=== PATIENT | female | born 1940 | race Caucasian/White ===

== ENCOUNTER → 2016-08-23 | Outpatient (CLI) | payer MEDICARE, OTHER | END | disposition home or self-care (01) | LOC: CVU 13:30 | PROVIDERS: ATTEND Physician Assistant | DX: I70.203 Unspecified atherosclerosis of native arteries of extremities, bilateral legs (principal); E11.9 Type 2 diabetes mellitus without complications; E78.5 Hyperlipidemia, unspecified; I10 Essential (primary) hypertension; F41.9 Anxiety disorder, unspecified; I70.8 Atherosclerosis of other arteries; M47.896 Other spondylosis, lumbar region; Z79.01 Long term (current) use of anticoagulants; Z86.73 Personal history of transient ischemic attack (TIA), and cerebral infarction without residual deficits | CPT/HCPCS: 72110; 93922; 93925 ==

== ENCOUNTER → 2017-05-02 | Outpatient (CLI) | payer MEDICARE, OTHER | LOC: CFH 09:29 | PROVIDERS: ATTEND Nurse Practitioner Primary Care | DX: Z13.220 Encounter for screening for lipoid disorders (principal); Z12.11 Encounter for screening for malignant neoplasm of colon; Z12.39 Encounter for other screening for malignant neoplasm of breast; Z12.4 Encounter for screening for malignant neoplasm of cervix; E11.9 Type 2 diabetes mellitus without complications; E78.5 Hyperlipidemia, unspecified; I10 Essential (primary) hypertension; N28.9 Disorder of kidney and ureter, unspecified; G56.00 Carpal tunnel syndrome, unspecified upper limb; Z86.73 Personal history of transient ischemic attack (TIA), and cerebral infarction without residual deficits; M54.5 Low back pain; I73.9 Peripheral vascular disease, unspecified; R06.83 Snoring; R05 Cough | CPT/HCPCS: 71046 ==

== ENCOUNTER → 2017-08-28 | Outpatient (CLI) | payer MEDICARE, OTHER | END | disposition home or self-care (01) | LOC: MRI 11:14 | PROVIDERS: ATTEND Internal Medicine | DX: J98.11 Atelectasis (principal); F32.9 Major depressive disorder, single episode, unspecified; J30.9 Allergic rhinitis, unspecified; E11.9 Type 2 diabetes mellitus without complications; E78.5 Hyperlipidemia, unspecified; I10 Essential (primary) hypertension; N28.9 Disorder of kidney and ureter, unspecified; G56.00 Carpal tunnel syndrome, unspecified upper limb; I70.8 Atherosclerosis of other arteries; R13.10 Dysphagia, unspecified; M54.5 Low back pain; I73.9 Peripheral vascular disease, unspecified; R06.83 Snoring; R94.31 Abnormal electrocardiogram [ECG] [EKG]; F41.9 Anxiety disorder, unspecified; M80.00XD Age-related osteoporosis with current pathological fracture, unspecified site, subsequent encounter for fracture with routine healing; Z86.73 Personal history of transient ischemic attack (TIA), and cerebral infarction without residual deficits | CPT/HCPCS: 71046 ==

== ENCOUNTER 2017-10-10 23:41 | Inpatient (IN) | payer MEDICARE, OTHER ==
[~2017-10-10] VITALS: Ht 157.5 cm; Wt 95.0 kg
[2017-10-10] MEDS ORDERED: AMLO10TA2 PO (23:56)
[2017-10-10] MEDS ORDERED: ALEN70TA3 PO (23:56)
[2017-10-10] MEDS ORDERED: CLOP75TA52 PO (23:56)
[2017-10-10] MEDS ORDERED: ASPI-647 PO (23:56)
[2017-10-10] MEDS ORDERED: GABA300C10 PO (23:56)
[2017-10-10] MEDS ORDERED: ENAL20TA PO (23:56)
[2017-10-10] MEDS ORDERED: INSULIN GLARGINE (23:59)
[2017-10-10] MEDS ORDERED: PIOG15TA22 PO (23:59)
[2017-10-10] MEDS ORDERED: ROSU5TAB PO (23:59)
[2017-10-10] MEDS ORDERED: LINA5TAB PO (23:59)
[2017-10-10] MEDS ORDERED: FENO40TA4 PO (23:59)
[2017-10-11 00:10] LABS: BASOPHILS # (AUTO) 0.05 x10^3/uL (0-0.1); BASOPHILS % (AUTO) 1 % (0-1); EOSINOPHILS # (AUTO) 0.29 x10^3/uL (0-0.4); EOSINOPHILS % (AUTO) 5 % (1-7); LYMPHOCYTES # (AUTO) 2.51 x10^3/uL (1-3.4); LYMPHOCYTES % (AUTO) 39 % (22-44); MD NO; MEAN CORPUSCULAR HEMOGLOBIN 27.3 pg (27.0-34.8); MEAN CORPUSCULAR HGB CONC 32.7 g/dL (32.4-35.8); MEAN CORPUSCULAR VOLUME 83.6 fL (80-100); MEAN PLATELET VOLUME 8.8 fL (7.4-10.4); MONOCYTES # (AUTO) 0.55 x10^3/uL (0.2-0.8); MONOCYTES % (AUTO) 9 % (2-9); NEUTROPHILS # (AUTO) 3.01 x10^3/uL (1.8-6.8); NEUTROPHILS % (AUTO) 47 % (42-75); PLATELET COUNT 216 x10^3/uL (130-400); RED CELL DISTRIBUTION WIDTH 15.9 % (9.6-15.2)
[2017-10-11 00:22] LABS: ALBUMIN 3.9 g/dL (3.4-5.0); ANION GAP 7 mmol/L (5-15); CALCIUM 9.9 mg/dL (8.5-10.1); CHLORIDE 113 mmol/L (98-107)
[2017-10-11] MEDS ORDERED: MORPHINE SULFATE 4 MG/ML, 1ML IVPush PRN (01:00)
[2017-10-11] MEDS ORDERED: ONDANSETRON 2MG/ML, 2ML IVPush PRN ×2 (01:00→02:00)
[2017-10-11 01:30] VITALS: BP 150/77
[2017-10-11] MEDS ORDERED: PLEASE ENTER ALLERGIES MC SCH (01:30)
[2017-10-11] MEDS ORDERED: POLYETHYLENE GLYCOL 17 GM PACKET PO PRN (02:00)
[2017-10-11] MEDS ORDERED: ENALAPRILAT 1.25 MG/ML, 2ML IVPush PRN (02:00)
[2017-10-11] MEDS ORDERED: PROMETHAZINE 25 MG/ML, 1ML IM PRN (02:00)
[2017-10-11] MEDS ORDERED: BISACODYL 10 MG SUPP PR PRN (02:00)
[2017-10-11] MEDS ORDERED: NITROGLYCERIN 0.4 MG BOTTLE (25 TABS) SL PRN (02:00)
[2017-10-11] MEDS ORDERED: LABETALOL 5MG/ML, 20ML IVPush PRN (02:00)
[2017-10-11] MEDS ORDERED: DOCUSATE 100 MG CAPSULE PO PRN (02:00)
[2017-10-11] MEDS ORDERED: morphine SULFATE 10 MG/ML, 1ML IVPush PRN (02:00)
[2017-10-11] MEDS ORDERED: ONDANSETRON ODT 4 MG PO PRN (02:00)
[2017-10-11 02:35] LABS: FREE T4 (FREE THYROXINE) 1.07 ng/dL (0.76-1.46); THYROID STIMULATING HORMONE 1.84 mIU/L (0.358-3.740)
[2017-10-11] MEDS: SODIUM CHLORIDE 0.9% 1,000 ML IV SCH ×2 (02:48→22:25)
[2017-10-11] MEDS: HEPARIN 25,000 UNITS/500ML PMX 500 ML IV PRN (02:56)
[2017-10-11] MEDS ORDERED: HEPARIN 5,000 UNITS/ML, 1ML IV ONE (03:00)
[2017-10-11 03:32] LABS: MICROSCOPIC AUTO
[2017-10-11 03:40] LABS: CULTURE INDICATED? YES
[2017-10-11 05:02] LABS: BASOPHILS # (AUTO) 0.05 x10^3/uL (0-0.1); BASOPHILS % (AUTO) 1 % (0-1); EOSINOPHILS # (AUTO) 0.24 x10^3/uL (0-0.4); EOSINOPHILS % (AUTO) 4 % (1-7); LYMPHOCYTES # (AUTO) 2.07 x10^3/uL (1-3.4); LYMPHOCYTES % (AUTO) 33 % (22-44); MD NO; MEAN CORPUSCULAR HEMOGLOBIN 26.5 pg (27.0-34.8); MEAN CORPUSCULAR HGB CONC 31.7 g/dL (32.4-35.8); MEAN CORPUSCULAR VOLUME 83.6 fL (80-100); MEAN PLATELET VOLUME 9.3 fL (7.4-10.4); MONOCYTES # (AUTO) 0.53 x10^3/uL (0.2-0.8); MONOCYTES % (AUTO) 8 % (2-9); NEUTROPHILS # (AUTO) 3.47 x10^3/uL (1.8-6.8); NEUTROPHILS % (AUTO) 55 % (42-75); PLATELET COUNT 196 x10^3/uL (130-400); RED BLOOD COUNT 5.09 x10^6/uL (3.82-5.3); RED CELL DISTRIBUTION WIDTH 16.6 % (9.6-15.2)
[2017-10-11 05:13] LABS: CHLORIDE 115 mmol/L (98-107)
[2017-10-11 05:26] LABS: ALANINE AMINOTRANSFERASE 24 U/L (12-78); ALBUMIN 3.3 g/dL (3.4-5.0); ALKALINE PHOSPHATASE 42 U/L (45-117); ANION GAP 8 mmol/L (5-15); BILIRUBIN,TOTAL 0.5 mg/dL (0.2-1.0); CALCIUM 8.9 mg/dL (8.5-10.1); CHOL/HDL RATIO 1.8; CHOLESTEROL, TOTAL 120 mg/dL (140-239); CREATININE 1.59 mg/dL (0.55-1.02); HDL CHOL % 57 % (28-40); HDL CHOLESTEROL (DIRECT) 68 mg/dL (40-60); LDL CHOLESTEROL,CALCULATED 44 mg/dL (54-169); LDL/HDL RATIO 0.6 (0.5-3.0); TOTAL PROTEIN 6.9 g/dL (6.4-8.2); TRIGLYCERIDES 41 mg/dL (50-200); TROPONIN I 0.637 ng/mL (0.000-0.045); VLDL CHOLESTEROL 8 mg/dL (0-25)
[2017-10-11] MEDS: ASPIRIN 325 MG TABLET EC PO SCH (06:00)
[2017-10-11] MEDS: METOPROLOL TARTRATE 25 MG TABLET PO SCH ×2 (06:27→18:48)
[2017-10-11 06:49] VITALS: BP 152/84
[2017-10-11] MEDS: INSULIN LISPRO 100 UNITS/ML, PEN SQ-INSULIN SCH ×4 (07:00→22:25)
[2017-10-11] MEDS: GABAPENTIN 300 MG CAPSULE PO SCH ×3 (08:27→22:21)
[2017-10-11] MEDS: AMLODIPINE 5 MG TABLET PO SCH (08:27)
[2017-10-11] MEDS ORDERED: CLOPIDOGREL 75 MG TABLET PO SCH (09:00)
[2017-10-11 13:09] VITALS: BP 156/73
[2017-10-11] MEDS ORDERED: MIDAZOLAM 1 MG/ML, 2ML ONE (13:34)
[2017-10-11] MEDS ORDERED: FENTANYL PF 100 MCG/2ML ONE (13:34)
[2017-10-11] MEDS ORDERED: HEPARIN 1,000 UNITS/ML, 10ML ONE (13:34)
[2017-10-11] MEDS ORDERED: LIDOCAINE-MPF 2%, 2ML ONE (13:34)
[2017-10-11] MEDS ORDERED: VERAPAMIL 2.5 MG/ML, 2ML ONE (13:34)
[2017-10-11 20:11] VITALS: BP 156/73
[2017-10-11] MEDS ORDERED: MELATONIN 3 MG TABLET PO PRN (22:00)
[2017-10-11] MEDS: ATORVASTATIN 10 MG TABLET PO SCH (22:20)
[2017-10-11] MEDS: HEPARIN 5,000 UNITS/ML, 1ML IV PRN (22:22)
[2017-10-12 04:39] VITALS: BP 138/60
[2017-10-12 04:59] LABS: ANION GAP 8 mmol/L (5-15); CHLORIDE 113 mmol/L (98-107); CREATININE 1.42 mg/dL (0.55-1.02)
[2017-10-12] MEDS: HEPARIN 5,000 UNITS/ML, 1ML IV PRN (05:23)
[2017-10-12] MEDS: METOPROLOL TARTRATE 25 MG TABLET PO SCH ×2 (05:24→17:35)
[2017-10-12] MEDS: ASPIRIN 325 MG TABLET EC PO SCH (05:24)
[2017-10-12] MEDS: INSULIN LISPRO 100 UNITS/ML, PEN SQ-INSULIN SCH ×4 (07:00→21:00)
[2017-10-12 07:20] VITALS: BP 109/67
[2017-10-12] MEDS: GABAPENTIN 300 MG CAPSULE PO SCH ×3 (08:05→21:49)
[2017-10-12] MEDS: AMLODIPINE 5 MG TABLET PO SCH (08:05)
[2017-10-12] MEDS: LOSARTAN 50MG TABLET PO SCH (08:05)
[2017-10-12] MEDS: HEPARIN 25,000 UNITS/500ML PMX 500 ML IV PRN (10:07)
[2017-10-12 14:37] VITALS: BP 121/69
[2017-10-12 17:33] VITALS: BP 157/68
[2017-10-12 20:11] VITALS: BP 140/87
[2017-10-12] MEDS: ATORVASTATIN 10 MG TABLET PO SCH (21:49)
[2017-10-13 01:34] VITALS: BP 123/71
[2017-10-13 05:36] LABS: CHLORIDE 110 mmol/L (98-107)
[2017-10-13] MEDS: ASPIRIN 325 MG TABLET EC PO SCH (05:38)
[2017-10-13] MEDS: METOPROLOL TARTRATE 25 MG TABLET PO SCH ×2 (05:39→16:57)
[2017-10-13 05:45] LABS: ANION GAP 9 mmol/L (5-15); CREATININE 1.71 mg/dL (0.55-1.02)
[2017-10-13] MEDS: HEPARIN 25,000 UNITS/500ML PMX 500 ML IV PRN (06:14)
[2017-10-13] MEDS: INSULIN LISPRO 100 UNITS/ML, PEN SQ-INSULIN SCH ×4 (07:00→20:01)
[2017-10-13 07:33] VITALS: BP 130/68
[2017-10-13] MEDS: AMLODIPINE 5 MG TABLET PO SCH (08:50)
[2017-10-13] MEDS: GABAPENTIN 300 MG CAPSULE PO SCH ×3 (08:50→20:35)
[2017-10-13] MEDS: LOSARTAN 50MG TABLET PO SCH (08:51)
[2017-10-13] MEDS: SODIUM CHLORIDE 0.9% 1,000 ML IV SCH ×2 (08:51→20:35)
[2017-10-13 15:43] VITALS: BP 153/68
[2017-10-13 16:54] VITALS: BP 137/76
[2017-10-13 19:20] VITALS: BP 133/71
[2017-10-13] MEDS: ATORVASTATIN 10 MG TABLET PO SCH (20:35)
[2017-10-14 02:21] VITALS: BP 142/76
[2017-10-14 04:43] LABS: BASOPHILS # (AUTO) 0.05 x10^3/uL (0-0.1); BASOPHILS % (AUTO) 1 % (0-1); EOSINOPHILS # (AUTO) 0.21 x10^3/uL (0-0.4); EOSINOPHILS % (AUTO) 4 % (1-7); LYMPHOCYTES # (AUTO) 1.62 x10^3/uL (1-3.4); LYMPHOCYTES % (AUTO) 31 % (22-44); MD NO; MEAN CORPUSCULAR HEMOGLOBIN 27.4 pg (27.0-34.8); MEAN CORPUSCULAR HGB CONC 32.7 g/dL (32.4-35.8); MEAN CORPUSCULAR VOLUME 83.8 fL (80-100); MEAN PLATELET VOLUME 9.2 fL (7.4-10.4); MONOCYTES # (AUTO) 0.46 x10^3/uL (0.2-0.8); MONOCYTES % (AUTO) 9 % (2-9); NEUTROPHILS # (AUTO) 2.91 x10^3/uL (1.8-6.8); NEUTROPHILS % (AUTO) 55 % (42-75); PLATELET COUNT 186 x10^3/uL (130-400); RED BLOOD COUNT 4.91 x10^6/uL (3.82-5.3); RED CELL DISTRIBUTION WIDTH 15.8 % (9.6-15.2)
[2017-10-14 04:54] LABS: ANION GAP 8 mmol/L (5-15); CALCIUM 8.9 mg/dL (8.5-10.1); CHLORIDE 114 mmol/L (98-107)
[2017-10-14 04:55] LABS: CREATININE 1.42 mg/dL (0.55-1.02)
[2017-10-14] MEDS: SODIUM CHLORIDE 0.9% 1,000 ML IV SCH (06:47)
[2017-10-14] MEDS: METOPROLOL TARTRATE 25 MG TABLET PO SCH ×2 (06:47→17:06)
[2017-10-14] MEDS: ASPIRIN 325 MG TABLET EC PO SCH (06:48)
[2017-10-14] MEDS: INSULIN LISPRO 100 UNITS/ML, PEN SQ-INSULIN SCH ×4 (07:00→20:45)
[2017-10-14 07:05] VITALS: BP 131/73
[2017-10-14] MEDS: GABAPENTIN 300 MG CAPSULE PO SCH ×3 (10:16→20:41)
[2017-10-14] MEDS: AMLODIPINE 5 MG TABLET PO SCH (10:16)
[2017-10-14] MEDS: LOSARTAN 50MG TABLET PO SCH (10:17)
[2017-10-14] MEDS: ACETAMINOPHEN 325 MG TABLET PO PRN (10:56)
[2017-10-14 13:32] VITALS: BP 145/74
[2017-10-14 17:00] VITALS: BP 165/78
[2017-10-14 20:40] VITALS: BP 149/89
[2017-10-14] MEDS: ATORVASTATIN 10 MG TABLET PO SCH (20:41)
[2017-10-15 02:51] VITALS: BP 128/78
[2017-10-15] MEDS: ASPIRIN 325 MG TABLET EC PO SCH (05:51)
[2017-10-15] MEDS: INSULIN LISPRO 100 UNITS/ML, PEN SQ-INSULIN SCH ×4 (07:00→20:13)
[2017-10-15 07:20] VITALS: BP 138/71
[2017-10-15] MEDS: GABAPENTIN 300 MG CAPSULE PO SCH ×3 (07:43→20:13)
[2017-10-15] MEDS: AMLODIPINE 5 MG TABLET PO SCH (07:43)
[2017-10-15] MEDS: METOPROLOL TARTRATE 25 MG TABLET PO SCH ×2 (07:43→17:47)
[2017-10-15] MEDS: LOSARTAN 50MG TABLET PO SCH (07:47)
[2017-10-15 10:19] LABS: BASOPHILS # (AUTO) 0.03 x10^3/uL (0-0.1); BASOPHILS % (AUTO) 1 % (0-1); EOSINOPHILS # (AUTO) 0.22 x10^3/uL (0-0.4); EOSINOPHILS % (AUTO) 4 % (1-7); LYMPHOCYTES # (AUTO) 1.57 x10^3/uL (1-3.4); LYMPHOCYTES % (AUTO) 30 % (22-44); MD NO; MEAN CORPUSCULAR HEMOGLOBIN 27.2 pg (27.0-34.8); MEAN CORPUSCULAR HGB CONC 32.7 g/dL (32.4-35.8); MEAN CORPUSCULAR VOLUME 83.2 fL (80-100); MONOCYTES # (AUTO) 0.39 x10^3/uL (0.2-0.8); MONOCYTES % (AUTO) 8 % (2-9); NEUTROPHILS # (AUTO) 2.96 x10^3/uL (1.8-6.8); NEUTROPHILS % (AUTO) 57 % (42-75); PLATELET COUNT 210 x10^3/uL (130-400); RED BLOOD COUNT 5.39 x10^6/uL (3.82-5.3)
[2017-10-15 10:21] LABS: ALBUMIN 3.5 g/dL (3.4-5.0); ANION GAP 7 mmol/L (5-15); CALCIUM 10.1 mg/dL (8.5-10.1); CHLORIDE 108 mmol/L (98-107); CREATININE 1.71 mg/dL (0.55-1.02)
[2017-10-15] MEDS ORDERED: MAGNESIUM OXIDE 400 MG TABLET PO SCH (10:30)
[2017-10-15] MEDS ORDERED: FENTANYL PF 100 MCG/2ML ONE ×4 (14:22→16:33)
[2017-10-15] MEDS ORDERED: BIVALIRUDIN 250 MG ONE ×2 (14:22→15:27)
[2017-10-15] MEDS ORDERED: MIDAZOLAM 1 MG/ML, 5ML ONE (14:22)
[2017-10-15] MEDS ORDERED: HEPARIN 1,000 UNITS/ML, 10ML ONE (14:22)
[2017-10-15] MEDS ORDERED: VERAPAMIL 2.5 MG/ML, 2ML ONE (14:22)
[2017-10-15] MEDS ORDERED: TICAGRELOR 90 MG TABLET ONE (14:33)
[2017-10-15] MEDS ORDERED: NITROGLYCERIN 5 MG/ML, 10ML ONE (14:40)
[2017-10-15 17:00] VITALS: BP 157/83
[2017-10-15] MEDS ORDERED: BIVALIRUDIN 250 MG in DEXTROSE 5% 50 ML IV SCH (17:09)
[2017-10-15] MEDS: OXYcodone IR 5MG TABLET PO PRN (17:47)
[2017-10-15] MEDS: SODIUM CHLORIDE 0.9% 1,000 ML IV SCH (18:16)
[2017-10-15 20:00] VITALS: BP 139/75
[2017-10-15] MEDS: ATORVASTATIN 10 MG TABLET PO SCH (20:13)
[2017-10-15] MEDS: TICAGRELOR 90 MG TABLET PO SCH (20:13)
[2017-10-16] MEDS: SODIUM CHLORIDE 0.9% 1,000 ML IV SCH (00:04)
[2017-10-16 02:14] VITALS: BP 130/72
[2017-10-16] MEDS: ASPIRIN 81 MG TABLET EC PO SCH (05:06)
[2017-10-16] MEDS: METOPROLOL TARTRATE 25 MG TABLET PO SCH ×2 (05:06→18:27)
[2017-10-16] MEDS: OXYcodone IR 5MG TABLET PO PRN ×2 (05:11→21:30)
[2017-10-16 05:24] LABS: ALBUMIN 3.6 g/dL (3.4-5.0); ANION GAP 9 mmol/L (5-15); CALCIUM 9.9 mg/dL (8.5-10.1); CHLORIDE 108 mmol/L (98-107); CREATININE 1.37 mg/dL (0.55-1.02)
[2017-10-16 07:47] VITALS: BP 112/71
[2017-10-16] MEDS: TICAGRELOR 90 MG TABLET PO SCH ×2 (09:31→21:31)
[2017-10-16] MEDS: INSULIN LISPRO 100 UNITS/ML, PEN SQ-INSULIN SCH ×4 (09:31→21:34)
[2017-10-16] MEDS: AMLODIPINE 5 MG TABLET PO SCH (09:32)
[2017-10-16] MEDS: LOSARTAN 50MG TABLET PO SCH (09:32)
[2017-10-16] MEDS: GABAPENTIN 300 MG CAPSULE PO SCH ×3 (09:32→21:30)
[2017-10-16 13:15] VITALS: BP 125/68
[2017-10-16] MEDS: ATORVASTATIN 10 MG TABLET PO SCH (21:30)
[2017-10-16 21:41] VITALS: BP 119/70
[2017-10-17 01:34] VITALS: BP 101/62
[2017-10-17] MEDS: ASPIRIN 81 MG TABLET EC PO SCH (05:46)
[2017-10-17] MEDS: METOPROLOL TARTRATE 25 MG TABLET PO SCH (05:46)
[2017-10-17 05:49] VITALS: BP 112/78
[2017-10-17 07:00] VITALS: BP 121/70
[2017-10-17] MEDS: INSULIN LISPRO 100 UNITS/ML, PEN SQ-INSULIN SCH ×2 (07:00→11:31)
[2017-10-17] MEDS: AMLODIPINE 5 MG TABLET PO SCH (08:02)
[2017-10-17] MEDS: TICAGRELOR 90 MG TABLET PO SCH (08:02)
[2017-10-17] MEDS: GABAPENTIN 300 MG CAPSULE PO SCH (08:02)
[2017-10-17] MEDS: LOSARTAN 50MG TABLET PO SCH (08:02)
[2017-10-17] MEDS: ACETAMINOPHEN 325 MG TABLET PO PRN (08:13)
[2017-10-17 13:01] VITALS: BP 120/75
[2017-10-17] MEDS ORDERED: ONDA4TAB13 PO (14:02)
[2017-10-17] MEDS ORDERED: LOSA50TA2 PO (14:02)
[2017-10-17] MEDS ORDERED: METO25TA35 PO (14:02)
[2017-10-17] MEDS ORDERED: TICA90TA PO (14:02)
[2017-10-17] MEDS ORDERED: DOCU-131 PO (14:02)
[2017-10-17] MEDS ORDERED: NITR0.4T SL (14:02)
[2017-10-17] MEDS ORDERED: GABA300C10 PO (14:02)
[2017-10-17] MEDS ORDERED: ASPI-621 PO (14:02)
== END 2017-10-17 15:10 | disposition home health service (06) | DRG 246 ==
LOC: ED 23:59 → EDIP 10-11 01:14 → 5SO 10-11 01:25 → DCLOUNGE 10-17 14:31
PROVIDERS: ADMIT Internal Medicine; ATTEND Internal Medicine
PROC: 027137Z Dilation of Coronary Artery, Two Arteries with Four or More Drug-eluting Intraluminal Devices, Percutaneous Approach (ICD-10-PCS; principal; 2017-10-11)
PROC: 4A023N7 Measurement of Cardiac Sampling and Pressure, Left Heart, Percutaneous Approach (ICD-10-PCS; 2017-10-11)
PROC: B2111ZZ Fluoroscopy of Multiple Coronary Arteries using Low Osmolar Contrast (ICD-10-PCS; 2017-10-11)
PROC: B2151ZZ Fluoroscopy of Left Heart using Low Osmolar Contrast (ICD-10-PCS; 2017-10-11)
DX: I21.4 Non-ST elevation (NSTEMI) myocardial infarction (principal); N17.0 Acute kidney failure with tubular necrosis; I10 Essential (primary) hypertension; E11.51 Type 2 diabetes mellitus with diabetic peripheral angiopathy without gangrene; E11.40 Type 2 diabetes mellitus with diabetic neuropathy, unspecified; I25.119 Atherosclerotic heart disease of native coronary artery with unspecified angina pectoris; E78.5 Hyperlipidemia, unspecified; I34.0 Nonrheumatic mitral (valve) insufficiency; M85.80 Other specified disorders of bone density and structure, unspecified site; Z79.4 Long term (current) use of insulin; Z80.8 Family history of malignant neoplasm of other organs or systems; Z86.73 Personal history of transient ischemic attack (TIA), and cerebral infarction without residual deficits; Z87.891 Personal history of nicotine dependence; Z90.49 Acquired absence of other specified parts of digestive tract
CPT/HCPCS: 36415; 71045; 76770; 80048; 80053; 80061; 80069; 81001; 82040; 82962; 83036; 83735; 83880; 84439; 84443; 84484; 85014; 85018; 85025; 85520; 87086; 93005; 93454; 93458; 99156; 99157; 99285; C1760; C1769; C1894; C9600; J0583; J1644; J2250; J3010; J3490; C1725; C1874; C1887; J1815; J2270; J7030; Q9967

== ENCOUNTER → 2018-01-03 | Outpatient (CLI) | payer MEDICARE, OTHER ==
[~2018-01-03] MED LIST: ALEN70TA3 PO; AMLO10TA6 PO; ASPI-621 PO; ASPI-647 PO; CLOP75TA52 PO; DOCU-131 PO; ENAL20TA PO; FENO40TA4 PO; GABA300C10 PO; INSULIN GLARGINE; LINA5TAB PO; LOSA50TA2 PO; METO25TA35 PO; NITR0.4T SL; ONDA4TAB13 PO; PIOG15TA22 PO; ROSU5TAB PO; TICA90TA PO
== END | disposition home or self-care (01) ==
LOC: CFH 11:38
PROVIDERS: ATTEND Physician Assistant
DX: Z02.9 Encounter for administrative examinations, unspecified (principal)

== ENCOUNTER → 2018-01-06 | Outpatient (CLI) | payer MEDICARE, OTHER | END | disposition home or self-care (01) | LOC: CFH 12:07 | PROVIDERS: ATTEND Physician Assistant | DX: M25.551 Pain in right hip (principal); M25.552 Pain in left hip; R20.0 Anesthesia of skin; I73.9 Peripheral vascular disease, unspecified; E11.9 Type 2 diabetes mellitus without complications; I10 Essential (primary) hypertension; E78.5 Hyperlipidemia, unspecified; F32.9 Major depressive disorder, single episode, unspecified; F41.9 Anxiety disorder, unspecified | CPT/HCPCS: 73523 ==

== ENCOUNTER → 2018-01-15 | Outpatient (CLI) | payer MEDICARE, OTHER | END | disposition home or self-care (01) | LOC: CFH 06:52 | PROVIDERS: ATTEND Physician Assistant | DX: M48.062 Spinal stenosis, lumbar region with neurogenic claudication (principal); M12.88 Other specific arthropathies, not elsewhere classified, other specified site | CPT/HCPCS: 72148 ==

== ENCOUNTER → 2018-01-27 | Outpatient (CLI) | payer MEDICARE, OTHER | END | disposition home or self-care (01) | LOC: CFH 09:59 | PROVIDERS: ATTEND Internal Medicine Cardiovascular Disease | DX: I34.0 Nonrheumatic mitral (valve) insufficiency (principal); I34.8 Other nonrheumatic mitral valve disorders; I10 Essential (primary) hypertension; E78.5 Hyperlipidemia, unspecified; I25.2 Old myocardial infarction | CPT/HCPCS: 93306 ==

== ENCOUNTER 2018-04-29 19:31 | Inpatient (IN) | payer MEDICARE, OTHER ==
[~2018-04-29] VITALS: Ht 157.5 cm; Wt 95.1 kg
[~2018-04-29 19:31] MED LIST changes: -AMLO10TA6 PO; +AMLO10TA8 PO; -ASPI-621 PO; +ASPI81TA45 PO
--- NOTE | 2018-04-29 20:26 | NUR ---
PT. TO ROOM FROM LOBBY; PT. AMBULATORY TO BR WITH STEADY GAIT AT THIS TIME.
--- NOTE | 2018-04-29 20:38 | NUR ---
PT. TO ED WITH C/O COUGH SINCE Apr. REPORTS WAS DX WITH BRONCHITIS AND PNA; HAS BEEN TAKING UNKNOWN ABX AND ONLY HAS 2 DAYS LEFT OF THIS. PT. REPORTS COUGH MEDS NOT HELPING. LEFT SIDE "LUNG" PAIN. DENIES CP. C/O INCREASED SWELLING TO BLE. PT. REPORTS HX OF DM AND NV WITH STENTS (SEPTEMBER 2017). PT. ABLE TO SPEAK IN FULL SENTENCES. SKIN PWD. A&O X 4. PLACED ON CONTINUOUS PULSE OX, B/P, AND HEART MONITORS. CALL LIGHT IN REACH. LAB AT BS. PT. DENIES NEEDS. ALL SAFETY MEASURES OBSERVED. AWAITING PROVIDER EVAL.
[2018-04-29 20:51] LABS: BASOPHILS # (AUTO) 0.03 x10^3/uL (0-0.1); BASOPHILS % (AUTO) 0 % (0-1); EOSINOPHILS # (AUTO) 0.28 x10^3/uL (0-0.4); EOSINOPHILS % (AUTO) 4 % (1-7); LYMPHOCYTES # (AUTO) 2.44 x10^3/uL (1-3.4); LYMPHOCYTES % (AUTO) 31 % (22-44); MD NO; MEAN CORPUSCULAR HEMOGLOBIN 26.7 pg (27.0-34.8); MEAN CORPUSCULAR HGB CONC 31.5 g/dL (32.4-35.8); MEAN CORPUSCULAR VOLUME 84.5 fL (80-100); MEAN PLATELET VOLUME 9.2 fL (7.4-10.4); MONOCYTES # (AUTO) 0.53 x10^3/uL (0.2-0.8); MONOCYTES % (AUTO) 7 % (2-9); NEUTROPHILS # (AUTO) 4.65 x10^3/uL (1.8-6.8); NEUTROPHILS % (AUTO) 59 % (42-75); PLATELET COUNT 220 x10^3/uL (130-400); RED BLOOD COUNT 4.94 x10^6/uL (3.82-5.3); RED CELL DISTRIBUTION WIDTH 15.6 % (9.6-15.2)
[2018-04-29 21:00] LABS: ALANINE AMINOTRANSFERASE 53 U/L (12-78); ALBUMIN 3.4 g/dL (3.4-5.0); ANION GAP 4 mmol/L (5-15); CALCIUM 9.3 mg/dL (8.5-10.1); CHLORIDE 112 mmol/L (98-107); CREATININE 1.62 mg/dL (0.55-1.02)
[2018-04-29 21:04] LABS: ALKALINE PHOSPHATASE 52 U/L (45-117); BILIRUBIN,TOTAL 0.5 mg/dL (0.2-1.0); TOTAL PROTEIN 7.2 g/dL (6.4-8.2); TROPONIN I 0.018 ng/mL (0.000-0.045)
--- NOTE | 2018-04-29 21:12 | NUR ---
DR. REARDON AT BS TO EVAL PT. AND DISCUSS POC.
--- NOTE | 2018-04-29 21:20 | NUR ---
PER DR. REARDON OK FOR PT. TO HAVE WATER PER REQUEST; PROVIDED WITH WATER.
[2018-04-29] MEDS ORDERED: CEFTRIAXONE PMX 1GM/50ML 50 ML IV ONE (21:30)
[2018-04-29] MEDS ORDERED: AZITHROMYCIN 500 MG in SODIUM CHLORIDE 0.9% 250 ML IV ONE (21:30)
[2018-04-29] MEDS ORDERED: SODIUM CHLORIDE 0.9% 1,000 ML IV ONE (21:30)
--- NOTE | 2018-04-29 21:42 | NUR ---
IV ESTABLISHED; 2 SETS OF BLOOD CULTURES COMPLETED.
[2018-04-29] MEDS ORDERED: LOSA50TA14 PO (21:45)
[2018-04-29] MEDS ORDERED: INSU100V8 SQ (21:47)
[2018-04-29] MEDS ORDERED: CLOP75TA52 PO (21:47)
[2018-04-29] MEDS ORDERED: CEFTRIAXONE PMX 1GM/50ML 50 ML ONE (21:54)
[2018-04-29] MEDS: SODIUM CHLORIDE 0.9% 1,000 ML IV SCH (22:08)
--- NOTE | 2018-04-29 22:11 | NUR ---
REPORT TO SANDHYA SEPULVEDA. FLOOR READY FOR PT. TRANSPORT.
[2018-04-29] MEDS ORDERED: GUAIFENESIN/DM 200-20MG, 10ML UDC PO PRN (22:30)
[2018-04-29] MEDS ORDERED: POLYETHYLENE GLYCOL 17 GM PACKET PO PRN (22:30)
[2018-04-29] MEDS ORDERED: ONDANSETRON 2MG/ML, 2ML IVPush PRN (22:30)
[2018-04-29] MEDS ORDERED: INSULIN GLARGINE HUM REC ANLOG 22 UNIT SQ SCH (22:30)
[2018-04-29] MEDS ORDERED: hydrALAzine 20 MG/ML, 1ML IVPush PRN (22:30)
[2018-04-29 22:32] LABS: MICROSCOPIC AUTO
[2018-04-29 22:47] VITALS: BP 158/66
[2018-04-29] MEDS: ACETAMINOPHEN 325 MG TABLET PO PRN (23:29)
[2018-04-29] MEDS: GUAIFENESIN ER 600 MG TABLET PO SCH (23:29)
[2018-04-29] MEDS: BENZONATATE 100 MG CAPSULE PO SCH (23:29)
[2018-04-29] MEDS: GABAPENTIN 300 MG CAPSULE PO SCH (23:29)
[2018-04-29] MEDS: ENOXAPARIN 30 MG/0.3 ML SQ SCH (23:30)
[2018-04-30 02:37] VITALS: BP 108/65
[2018-04-30 06:10] LABS: BASOPHILS # (AUTO) 0.02 x10^3/uL (0-0.1); BASOPHILS % (AUTO) 0 % (0-1); EOSINOPHILS # (AUTO) 0.23 x10^3/uL (0-0.4); EOSINOPHILS % (AUTO) 4 % (1-7); LYMPHOCYTES # (AUTO) 1.52 x10^3/uL (1-3.4); LYMPHOCYTES % (AUTO) 27 % (22-44); MD NO; MEAN CORPUSCULAR VOLUME 84.8 fL (80-100); MEAN PLATELET VOLUME 9.6 fL (7.4-10.4); MONOCYTES # (AUTO) 0.45 x10^3/uL (0.2-0.8); MONOCYTES % (AUTO) 8 % (2-9); NEUTROPHILS # (AUTO) 3.43 x10^3/uL (1.8-6.8); NEUTROPHILS % (AUTO) 61 % (42-75); PLATELET COUNT 171 x10^3/uL (130-400); RED CELL DISTRIBUTION WIDTH 15.5 % (9.6-15.2)
[2018-04-30] MEDS: ASPIRIN 81 MG TABLET EC PO SCH (06:11)
[2018-04-30] MEDS: SODIUM CHLORIDE 0.9% 1,000 ML IV SCH (06:12)
[2018-04-30 06:18] LABS: ANION GAP 2 mmol/L (5-15); CHLORIDE 116 mmol/L (98-107)
[2018-04-30 06:20] LABS: CALCIUM 8.5 mg/dL (8.5-10.1); CREATININE 1.49 mg/dL (0.55-1.02)
[2018-04-30] MEDS: INSULIN LISPRO 100 UNITS/ML, PEN SQ-INSULIN SCH ×4 (07:00→21:00)
[2018-04-30 07:50] VITALS: BP 130/70
[2018-04-30] MEDS: PIOGLITAZONE 15 MG TABLET PO SCH (08:31)
[2018-04-30] MEDS: AMLODIPINE 10 MG TAB PO SCH (08:31)
[2018-04-30] MEDS: CLOPIDOGREL 75 MG TABLET PO SCH (08:32)
[2018-04-30] MEDS: LOSARTAN 50MG TABLET PO SCH (08:32)
[2018-04-30] MEDS: GABAPENTIN 300 MG CAPSULE PO SCH ×3 (08:32→15:44)
[2018-04-30] MEDS: BENZONATATE 100 MG CAPSULE PO SCH ×3 (08:32→20:55)
[2018-04-30] MEDS: GUAIFENESIN ER 600 MG TABLET PO SCH ×2 (08:32→20:55)
[2018-04-30] MEDS: FENOFIBRATE 54 MG TABLET PO SCH (08:33)
[2018-04-30] MEDS: ACETAMINOPHEN 325 MG TABLET PO PRN ×2 (08:33→18:02)
[2018-04-30] MEDS ORDERED: LINAGLIPTIN 5 MG TAB PO SCH (09:00)
[2018-04-30] MEDS ORDERED: PIOGLITAZONE HCL 15 MG PO SCH (09:00)
[2018-04-30] MEDS: AZITHROMYCIN 500 MG in SODIUM CHLORIDE 0.9% 250 ML IV SCH (10:35)
[2018-04-30 14:35] VITALS: BP 110/67
[2018-04-30] MEDS: CEFTRIAXONE PMX 1GM/50ML 50 ML IV SCH ×2 (15:30→22:00)
[2018-04-30 20:03] VITALS: BP 135/74
[2018-04-30] MEDS: ENOXAPARIN 30 MG/0.3 ML SQ SCH (22:00)
[2018-05-01] MEDS: ACETAMINOPHEN 325 MG TABLET PO PRN ×3 (00:49→17:02)
[2018-05-01 00:56] VITALS: BP 140/64
[2018-05-01] MEDS ORDERED: ALBUTEROL SULFATE 2.5 MG/3 ML ONE (02:46)
[2018-05-01] MEDS ORDERED: SODIUM CHLORIDE INHALATION 7%, 4 ML NPPB ONE (03:00)
[2018-05-01] MEDS: ASPIRIN 81 MG TABLET EC PO SCH (06:21)
[2018-05-01 06:31] LABS: BASOPHILS # (AUTO) 0.02 x10^3/uL (0-0.1); BASOPHILS % (AUTO) 0 % (0-1); EOSINOPHILS # (AUTO) 0.27 x10^3/uL (0-0.4); EOSINOPHILS % (AUTO) 6 % (1-7); LYMPHOCYTES # (AUTO) 1.42 x10^3/uL (1-3.4); LYMPHOCYTES % (AUTO) 29 % (22-44); MD NO; MEAN CORPUSCULAR HEMOGLOBIN 27.1 pg (27.0-34.8); MEAN CORPUSCULAR HGB CONC 31.9 g/dL (32.4-35.8); MEAN CORPUSCULAR VOLUME 85.2 fL (80-100); MEAN PLATELET VOLUME 9.5 fL (7.4-10.4); MONOCYTES # (AUTO) 0.41 x10^3/uL (0.2-0.8); MONOCYTES % (AUTO) 8 % (2-9); NEUTROPHILS # (AUTO) 2.75 x10^3/uL (1.8-6.8); NEUTROPHILS % (AUTO) 57 % (42-75); PLATELET COUNT 174 x10^3/uL (130-400); RED BLOOD COUNT 4.49 x10^6/uL (3.82-5.3); RED CELL DISTRIBUTION WIDTH 15.4 % (9.6-15.2)
[2018-05-01 06:40] LABS: ANION GAP 5 mmol/L (5-15); CALCIUM 9.3 mg/dL (8.5-10.1); CHLORIDE 113 mmol/L (98-107)
[2018-05-01 06:46] VITALS: BP 113/66
[2018-05-01] MEDS: INSULIN LISPRO 100 UNITS/ML, PEN SQ-INSULIN SCH ×4 (07:00→21:00)
[2018-05-01] MEDS: PIOGLITAZONE 15 MG TABLET PO SCH (09:00)
[2018-05-01] MEDS: AMLODIPINE 10 MG TAB PO SCH (09:10)
[2018-05-01] MEDS: LOSARTAN 50MG TABLET PO SCH (09:12)
[2018-05-01] MEDS: GUAIFENESIN ER 600 MG TABLET PO SCH ×2 (09:13→20:55)
[2018-05-01] MEDS: BENZONATATE 100 MG CAPSULE PO SCH ×3 (09:13→20:55)
[2018-05-01] MEDS: CLOPIDOGREL 75 MG TABLET PO SCH (09:13)
[2018-05-01] MEDS: GABAPENTIN 300 MG CAPSULE PO SCH ×3 (09:13→20:55)
[2018-05-01] MEDS: FENOFIBRATE 54 MG TABLET PO SCH (09:14)
[2018-05-01] MEDS: morphine SULFATE 10 MG/ML, 1ML IVPush PRN ×4 (09:19→21:21)
[2018-05-01] MEDS: LIDODERM 5% PATCH TD SCH (11:00)
[2018-05-01] MEDS: AZITHROMYCIN 500 MG in SODIUM CHLORIDE 0.9% 250 ML IV SCH (11:01)
[2018-05-01 13:24] VITALS: BP 100/61
[2018-05-01] MEDS ORDERED: FUROSEMIDE 20 MG/2 ML IV ONE (17:30)
[2018-05-01 18:14] LABS: TROPONIN I < 0.015 ng/mL (0.000-0.045)
[2018-05-01 19:36] VITALS: BP 140/52
[2018-05-01] MEDS: ENOXAPARIN 30 MG/0.3 ML SQ SCH (23:26)
[2018-05-02 01:43] VITALS: BP 113/64
[2018-05-02 06:13] LABS: BASOPHILS # (AUTO) 0.03 x10^3/uL (0-0.1); BASOPHILS % (AUTO) 1 % (0-1); EOSINOPHILS # (AUTO) 0.13 x10^3/uL (0-0.4); EOSINOPHILS % (AUTO) 2 % (1-7); LYMPHOCYTES # (AUTO) 1.09 x10^3/uL (1-3.4); LYMPHOCYTES % (AUTO) 18 % (22-44); MD NO; MEAN CORPUSCULAR HEMOGLOBIN 27.5 pg (27.0-34.8); MEAN CORPUSCULAR HGB CONC 32.4 g/dL (32.4-35.8); MEAN CORPUSCULAR VOLUME 84.7 fL (80-100); MEAN PLATELET VOLUME 9.4 fL (7.4-10.4); MONOCYTES # (AUTO) 0.43 x10^3/uL (0.2-0.8); MONOCYTES % (AUTO) 7 % (2-9); NEUTROPHILS % (AUTO) 72 % (42-75); PLATELET COUNT 173 x10^3/uL (130-400); RED BLOOD COUNT 4.48 x10^6/uL (3.82-5.3); RED CELL DISTRIBUTION WIDTH 15.6 % (9.6-15.2)
[2018-05-02 06:15] LABS: ANION GAP 3 mmol/L (5-15); CALCIUM 9.3 mg/dL (8.5-10.1); CHLORIDE 108 mmol/L (98-107); CREATININE 1.93 mg/dL (0.55-1.02)
[2018-05-02] MEDS: ACETAMINOPHEN 325 MG TABLET PO PRN ×2 (06:19→11:39)
[2018-05-02] MEDS: ASPIRIN 81 MG TABLET EC PO SCH (06:19)
[2018-05-02] MEDS: INSULIN LISPRO 100 UNITS/ML, PEN SQ-INSULIN SCH ×4 (07:00→21:00)
[2018-05-02 09:45] VITALS: BP 132/64
[2018-05-02] MEDS: GABAPENTIN 300 MG CAPSULE PO SCH ×3 (10:03→22:40)
[2018-05-02] MEDS: AMLODIPINE 10 MG TAB PO SCH (10:03)
[2018-05-02] MEDS: LOSARTAN 50MG TABLET PO SCH (10:03)
[2018-05-02] MEDS: GUAIFENESIN ER 600 MG TABLET PO SCH ×2 (10:03→21:00)
[2018-05-02] MEDS: BENZONATATE 100 MG CAPSULE PO SCH ×3 (10:04→22:40)
[2018-05-02] MEDS: CLOPIDOGREL 75 MG TABLET PO SCH (10:04)
[2018-05-02] MEDS: FENOFIBRATE 54 MG TABLET PO SCH (10:04)
[2018-05-02] MEDS: LIDODERM 5% PATCH TD SCH (10:04)
[2018-05-02] MEDS: morphine SULFATE 10 MG/ML, 1ML IVPush PRN (11:39)
[2018-05-02 14:25] VITALS: BP 132/58
[2018-05-02] MEDS ORDERED: FUROSEMIDE 20 MG/2 ML IV ONE (16:30)
[2018-05-02] MEDS ORDERED: PHARMACY MAY ADJ FOR RENAL FX MC PRN (16:30)
[2018-05-02 19:55] VITALS: BP 156/77
[2018-05-03] MEDS: morphine SULFATE 10 MG/ML, 1ML IVPush PRN ×3 (00:20→22:42)
[2018-05-03 03:02] VITALS: BP 119/71
[2018-05-03 05:40] LABS: ANION GAP 5 mmol/L (5-15); CALCIUM 9.4 mg/dL (8.5-10.1); CHLORIDE 103 mmol/L (98-107); CREATININE 1.82 mg/dL (0.55-1.02)
[2018-05-03] MEDS: INSULIN LISPRO 100 UNITS/ML, PEN SQ-INSULIN SCH ×4 (07:00→20:36)
[2018-05-03] MEDS: ASPIRIN 81 MG TABLET EC PO SCH (07:12)
[2018-05-03 07:55] VITALS: BP 169/71
[2018-05-03] MEDS: ENOXAPARIN 30 MG/0.3 ML SQ SCH (07:57)
[2018-05-03] MEDS: AMLODIPINE 10 MG TAB PO SCH (07:58)
[2018-05-03] MEDS: GUAIFENESIN ER 600 MG TABLET PO SCH ×2 (07:58→20:32)
[2018-05-03] MEDS: GABAPENTIN 300 MG CAPSULE PO SCH ×3 (07:58→20:32)
[2018-05-03] MEDS: LOSARTAN 50MG TABLET PO SCH (07:58)
[2018-05-03] MEDS: BENZONATATE 100 MG CAPSULE PO SCH ×3 (07:58→20:32)
[2018-05-03] MEDS: FENOFIBRATE 54 MG TABLET PO SCH (07:58)
[2018-05-03] MEDS: CLOPIDOGREL 75 MG TABLET PO SCH (07:58)
[2018-05-03] MEDS: LIDODERM 5% PATCH TD SCH (08:17)
[2018-05-03 13:15] VITALS: BP 125/67
[2018-05-03] MEDS: ACETAMINOPHEN 325 MG TABLET PO PRN (15:16)
[2018-05-03 20:37] VITALS: BP 106/67
[2018-05-04 02:28] VITALS: BP 148/71
[2018-05-04 02:45] VITALS: BP 150/69
[2018-05-04] MEDS: morphine SULFATE 10 MG/ML, 1ML IVPush PRN ×2 (02:46→05:46)
[2018-05-04] MEDS: ASPIRIN 81 MG TABLET EC PO SCH (05:39)
[2018-05-04] MEDS: INSULIN LISPRO 100 UNITS/ML, PEN SQ-INSULIN SCH ×4 (07:00→20:59)
[2018-05-04] MEDS: ACETAMINOPHEN 325 MG TABLET PO PRN (07:20)
[2018-05-04 08:00] VITALS: BP 153/73
[2018-05-04 10:28] LABS: ANION GAP 3 mmol/L (5-15); CALCIUM 9.5 mg/dL (8.5-10.1); CHLORIDE 105 mmol/L (98-107); CREATININE 1.59 mg/dL (0.55-1.02)
[2018-05-04] MEDS: ENOXAPARIN 30 MG/0.3 ML SQ SCH (10:43)
[2018-05-04] MEDS: LOSARTAN 50MG TABLET PO SCH (10:44)
[2018-05-04] MEDS: GABAPENTIN 300 MG CAPSULE PO SCH ×3 (10:44→21:00)
[2018-05-04] MEDS: BENZONATATE 100 MG CAPSULE PO SCH ×3 (10:44→21:00)
[2018-05-04] MEDS: GUAIFENESIN ER 600 MG TABLET PO SCH ×2 (10:44→21:00)
[2018-05-04] MEDS: FENOFIBRATE 54 MG TABLET PO SCH (10:44)
[2018-05-04] MEDS: AMLODIPINE 10 MG TAB PO SCH (10:44)
[2018-05-04] MEDS: CLOPIDOGREL 75 MG TABLET PO SCH (10:44)
[2018-05-04] MEDS: LIDODERM 5% PATCH TD SCH (10:45)
[2018-05-04] MEDS ORDERED: FUROSEMIDE 40 MG/4 ML IV STA (11:07)
[2018-05-04 13:00] VITALS: BP 101/57
[2018-05-04] MEDS ORDERED: FUROSEMIDE 20 MG/2 ML IV ONE (16:57)
[2018-05-04 19:10] VITALS: BP 108/67
[2018-05-05 02:55] VITALS: BP 108/49
[2018-05-05] MEDS: ASPIRIN 81 MG TABLET EC PO SCH (05:42)
[2018-05-05] MEDS: INSULIN LISPRO 100 UNITS/ML, PEN SQ-INSULIN SCH ×4 (06:48→22:36)
[2018-05-05 07:42] VITALS: BP 107/62
[2018-05-05] MEDS: AMLODIPINE 10 MG TAB PO SCH (08:25)
[2018-05-05] MEDS: GABAPENTIN 300 MG CAPSULE PO SCH ×3 (08:25→22:36)
[2018-05-05] MEDS: CLOPIDOGREL 75 MG TABLET PO SCH (08:25)
[2018-05-05] MEDS: GUAIFENESIN ER 600 MG TABLET PO SCH ×2 (08:25→22:37)
[2018-05-05] MEDS: BENZONATATE 100 MG CAPSULE PO SCH ×3 (08:25→22:36)
[2018-05-05] MEDS: FENOFIBRATE 54 MG TABLET PO SCH (08:25)
[2018-05-05] MEDS: ENOXAPARIN 30 MG/0.3 ML SQ SCH (08:25)
[2018-05-05] MEDS: LIDODERM 5% PATCH TD SCH (08:26)
[2018-05-05] MEDS: LOSARTAN 50MG TABLET PO SCH (08:27)
[2018-05-05] MEDS ORDERED: FUROSEMIDE 20 MG/2 ML IV ONE (10:30)
[2018-05-05 12:36] VITALS: BP 111/60
[2018-05-05] MEDS: ACETAMINOPHEN 325 MG TABLET PO PRN ×2 (17:08→22:50)
[2018-05-05 21:56] VITALS: BP 111/48
[2018-05-06 03:34] VITALS: BP 109/56
[2018-05-06] MEDS: INSULIN LISPRO 100 UNITS/ML, PEN SQ-INSULIN SCH ×2 (06:21→11:00)
[2018-05-06] MEDS: ASPIRIN 81 MG TABLET EC PO SCH (06:21)
[2018-05-06 07:09] VITALS: BP 113/54
[2018-05-06] MEDS ORDERED: FUROSEMIDE 20 MG TABLET ONE (08:47)
[2018-05-06] MEDS ORDERED: POTASSIUM CHLORIDE 8 MEQ TABLET.ER ONE (08:47)
[2018-05-06] MEDS: FENOFIBRATE 54 MG TABLET PO SCH (08:54)
[2018-05-06] MEDS: BENZONATATE 100 MG CAPSULE PO SCH (08:54)
[2018-05-06] MEDS: GABAPENTIN 300 MG CAPSULE PO SCH (08:54)
[2018-05-06] MEDS: ENOXAPARIN 30 MG/0.3 ML SQ SCH (08:54)
[2018-05-06] MEDS: LOSARTAN 50MG TABLET PO SCH (08:55)
[2018-05-06] MEDS: GUAIFENESIN ER 600 MG TABLET PO SCH (08:55)
[2018-05-06] MEDS: CLOPIDOGREL 75 MG TABLET PO SCH (08:55)
[2018-05-06] MEDS: LIDODERM 5% PATCH TD SCH (08:58)
[2018-05-06] MEDS ORDERED: AMLODIPINE 5 MG TABLET PO SCH (09:00)
[2018-05-06] MEDS ORDERED: FUROSEMIDE 20 MG TABLET PO SCH (09:00)
[2018-05-06] MEDS ORDERED: FUROSEMIDE 10 MG/ML ORAL SOL PO SCH (09:00)
[2018-05-06 09:50] LABS: ANION GAP 6 mmol/L (5-15); CALCIUM 10.4 mg/dL (8.5-10.1); CHLORIDE 104 mmol/L (98-107); CREATININE 1.77 mg/dL (0.55-1.02)
[2018-05-06] MEDS ORDERED: POTA8TAB PO (10:41)
[2018-05-06] MEDS ORDERED: FURO20TA3 PO (10:41)
[2018-05-06] MEDS ORDERED: LIDO700A20 TD (10:41)
[2018-05-06] MEDS ORDERED: BENZ-17 PO (10:41)
[2018-05-06] MEDS ORDERED: GUAI600T31 PO (10:41)
[2018-05-07] MEDS ORDERED: POTASSIUM CHLORIDE 8 MEQ TABLET.ER PO SCH (08:00)
== END 2018-05-06 13:25 | disposition home health service (06) | DRG 193 ==
LOC: ED 21:15 → EDIP 21:20 → ED 21:43 → 4NOR 22:33 → DCLOUNGE 05-06 13:08
PROVIDERS: ADMIT Hospitalist; ATTEND Hospitalist
DX: J18.9 Pneumonia, unspecified organism (principal); J96.01 Acute respiratory failure with hypoxia; N17.0 Acute kidney failure with tubular necrosis; E78.5 Hyperlipidemia, unspecified; E11.22 Type 2 diabetes mellitus with diabetic chronic kidney disease; I13.10 Hypertensive heart and chronic kidney disease without heart failure, with stage 1 through stage 4 chronic kidney disease, or unspecified chronic kidney disease; I25.10 Atherosclerotic heart disease of native coronary artery without angina pectoris; I25.2 Old myocardial infarction; M85.80 Other specified disorders of bone density and structure, unspecified site; N18.3 Chronic kidney disease, stage 3 (moderate); R79.1 Abnormal coagulation profile; Z79.4 Long term (current) use of insulin; Z86.73 Personal history of transient ischemic attack (TIA), and cerebral infarction without residual deficits; Z79.899 Other long term (current) drug therapy; Z88.2 Allergy status to sulfonamides; Z88.8 Allergy status to other drugs, medicaments and biological substances; E11.65 Type 2 diabetes mellitus with hyperglycemia
CPT/HCPCS: 36415; 71046; 71275; 80048; 80053; 81001; 82962; 83735; 83880; 84100; 84145; 84484; 85025; 85379; 87040; 87205; 93005; 93306; 96374; 96375; G0378; J0456; J0696; J1650; J2405; J1940; J2270; J7030; J7050

== ENCOUNTER 2018-07-24 08:23 | Outpatient (CLI) | payer MEDICARE, OTHER ==
[~2018-07-24 08:23] MED LIST changes: +BENZ-17 PO; +FURO20TA3 PO; +GUAI600T31 PO; +INSU100V8 SQ; +LIDO700A20 TD; +LOSA50TA14 PO; -NITR0.4T SL; +NITR0.4T41 SL; +POTA8TAB PO
== END 2018-07-24 23:59 | disposition home or self-care (01) ==
LOC: CVU 08:23
PROVIDERS: ATTEND Surgery
DX: I70.201 Unspecified atherosclerosis of native arteries of extremities, right leg (principal); E78.5 Hyperlipidemia, unspecified; E11.9 Type 2 diabetes mellitus without complications
CPT/HCPCS: 93922; 93925

== ENCOUNTER 2018-10-05 13:09 | Inpatient (IN) | payer MEDICARE, OTHER ==
[~2018-10-05] VITALS: Ht 157.5 cm; Wt 95.5 kg
[2018-10-13 14:04] VITALS: BP 128/68
== END 2018-10-13 15:35 | DRG 492 ==
LOC: OR 15:53 → EDIP 16:59 → 4WST 17:31 → 5SO 10-06 08:01 → CCU 10-07 10:25 → 5SO 10-09 17:35
PROVIDERS: ADMIT Hospitalist; ATTEND Hospitalist
PROC: 2W3MX2Z Immobilization of Left Lower Extremity using Cast (ICD-10-PCS; 2018-10-05)
PROC: 2W3QX2Z Immobilization of Right Lower Leg using Cast (ICD-10-PCS; 2018-10-05)
PROC: 027034Z Dilation of Coronary Artery, One Artery with Drug-eluting Intraluminal Device, Percutaneous Approach (ICD-10-PCS; principal; 2018-10-06)
PROC: 4A023N7 Measurement of Cardiac Sampling and Pressure, Left Heart, Percutaneous Approach (ICD-10-PCS; 2018-10-06)
PROC: B2111ZZ Fluoroscopy of Multiple Coronary Arteries using Low Osmolar Contrast (ICD-10-PCS; 2018-10-06)
PROC: 0T9B70Z Drainage of Bladder with Drainage Device, Via Natural or Artificial Opening (ICD-10-PCS; 2018-10-07)
PROC: 0QSH04Z Reposition Left Tibia with Internal Fixation Device, Open Approach (ICD-10-PCS; 2018-10-08)
PROC: 0QSG04Z Reposition Right Tibia with Internal Fixation Device, Open Approach (ICD-10-PCS; 2018-10-08)
PROC: 0QSJ04Z Reposition Right Fibula with Internal Fixation Device, Open Approach (ICD-10-PCS; 2018-10-08)
PROC: 0QSK04Z Reposition Left Fibula with Internal Fixation Device, Open Approach (ICD-10-PCS; 2018-10-08)
DX: S82.841A Displaced bimalleolar fracture of right lower leg, initial encounter for closed fracture (principal); I21.4 Non-ST elevation (NSTEMI) myocardial infarction; J81.0 Acute pulmonary edema; J96.01 Acute respiratory failure with hypoxia; J96.02 Acute respiratory failure with hypercapnia; I63.40 Cerebral infarction due to embolism of unspecified cerebral artery; T82.855A Stenosis of coronary artery stent, initial encounter; S82.201A Unspecified fracture of shaft of right tibia, initial encounter for closed fracture; G93.40 Encephalopathy, unspecified; E87.2 Acidosis; N17.9 Acute kidney failure, unspecified; D68.69 Other thrombophilia; F05 Delirium due to known physiological condition; R47.01 Aphasia; S82.852A Displaced trimalleolar fracture of left lower leg, initial encounter for closed fracture; W01.0XXA Fall on same level from slipping, tripping and stumbling without subsequent striking against object, initial encounter; I12.9 Hypertensive chronic kidney disease with stage 1 through stage 4 chronic kidney disease, or unspecified chronic kidney disease; E11.22 Type 2 diabetes mellitus with diabetic chronic kidney disease; E66.01 Morbid (severe) obesity due to excess calories; Z66 Do not resuscitate; Y83.1 Surgical operation with implant of artificial internal device as the cause of abnormal reaction of the patient, or of later complication, without mention of misadventure at the time of the procedure; N18.3 Chronic kidney disease, stage 3 (moderate); I25.10 Atherosclerotic heart disease of native coronary artery without angina pectoris; I48.0 Paroxysmal atrial fibrillation; G89.29 Other chronic pain; D64.9 Anemia, unspecified; E11.51 Type 2 diabetes mellitus with diabetic peripheral angiopathy without gangrene; E78.5 Hyperlipidemia, unspecified; E53.8 Deficiency of other specified B group vitamins; F03.90 Unspecified dementia, unspecified severity, without behavioral disturbance, psychotic disturbance, mood disturbance, and anxiety; M19.90 Unspecified osteoarthritis, unspecified site; K59.00 Constipation, unspecified; J44.9 Chronic obstructive pulmonary disease, unspecified; I65.21 Occlusion and stenosis of right carotid artery; E66.9 Obesity, unspecified; Y93.01 Activity, walking, marching and hiking; Z88.2 Allergy status to sulfonamides; Z88.6 Allergy status to analgesic agent; Z87.891 Personal history of nicotine dependence; Z86.73 Personal history of transient ischemic attack (TIA), and cerebral infarction without residual deficits; Z85.828 Personal history of other malignant neoplasm of skin; Z82.49 Family history of ischemic heart disease and other diseases of the circulatory system; Z79.4 Long term (current) use of insulin; Z79.01 Long term (current) use of anticoagulants; Z79.02 Long term (current) use of antithrombotics/antiplatelets; Z79.899 Other long term (current) drug therapy; I25.2 Old myocardial infarction; Z68.38 Body mass index [BMI] 38.0-38.9, adult; Y92.009 Unspecified place in unspecified non-institutional (private) residence as the place of occurrence of the external cause
CPT/HCPCS: 27840; 36415; 36600; 70450; 70553; 71045; 76000; 80048; 80053; 80061; 81003; 82607; 82803; 82962; 83036; 83605; 83690; 84443; 84484; 85025; 85520; 85610; 85730; 87081; 92978; 93005; 93458; 93880; 99152; 99156; 99157; C1713; C1753; C1760; C1769; C1894; C8929; C9600; G0378; J0583; J0690; J1100; J1170; J1644; J1650; J1940; J2250; J2310; J2405; J2704; J3010; J3480; Q9957; 92523-GN; C1725; C1874; C1887; J0330; J1815; J2270; J2370; J3420; J7030; J7120; Q9967

== ENCOUNTER → 2019-04-16 | Outpatient (CLI) | payer MEDICARE, OTHER ==
[~2019-04-16] MED LIST changes: +AMLO-150 PO; +ATOR-2 PO; +CYAN-27 PO; +CYCL-259 PO; +INSU100I11 SQ-INSULIN; +RIVA20TA PO; +TRAM50TA2 PO; +Tamsulosin PO
== END | disposition home or self-care (01) ==
LOC: WOUND 08:49
PROVIDERS: ATTEND Podiatrist Foot & Ankle Surgery
DX: T86.828 Other complications of skin graft (allograft) (autograft) (principal); E11.622 Type 2 diabetes mellitus with other skin ulcer; L97.321 Non-pressure chronic ulcer of left ankle limited to breakdown of skin; I10 Essential (primary) hypertension; E78.5 Hyperlipidemia, unspecified; I25.2 Old myocardial infarction; Z86.73 Personal history of transient ischemic attack (TIA), and cerebral infarction without residual deficits; Y83.2 Surgical operation with anastomosis, bypass or graft as the cause of abnormal reaction of the patient, or of later complication, without mention of misadventure at the time of the procedure
CPT/HCPCS: 97597; G0463

== ENCOUNTER 2019-04-23 10:13 | Outpatient (CLI) | payer MEDICARE, OTHER | END 2019-04-23 23:59 | disposition home or self-care (01) | LOC: WOUND 10:13 | PROVIDERS: ATTEND Podiatrist Foot & Ankle Surgery | DX: T86.828 Other complications of skin graft (allograft) (autograft) (principal); E11.622 Type 2 diabetes mellitus with other skin ulcer; L97.321 Non-pressure chronic ulcer of left ankle limited to breakdown of skin; I10 Essential (primary) hypertension; E78.5 Hyperlipidemia, unspecified; I25.2 Old myocardial infarction; Z86.73 Personal history of transient ischemic attack (TIA), and cerebral infarction without residual deficits; Y83.2 Surgical operation with anastomosis, bypass or graft as the cause of abnormal reaction of the patient, or of later complication, without mention of misadventure at the time of the procedure | CPT/HCPCS: G0463 ==

== ENCOUNTER → 2019-04-23 | Outpatient (CLI) | payer MEDICARE, OTHER | END | disposition home or self-care (01) | LOC: CFH 12:21 | PROVIDERS: ATTEND Physician Assistant Surgical | DX: S82.852A Displaced trimalleolar fracture of left lower leg, initial encounter for closed fracture (principal); M19.072 Primary osteoarthritis, left ankle and foot; R60.0 Localized edema; X58.XXXA Exposure to other specified factors, initial encounter; Y93.89 Activity, other specified; Y92.89 Other specified places as the place of occurrence of the external cause; Y99.8 Other external cause status ==

== ENCOUNTER → 2020-06-22 | Outpatient (CLI) | payer MEDICARE, OTHER ==
[~2020-06-22] MED LIST changes: +ALBU8.5H8 INH; +AMLO-211 PO; -AMLO10TA8 PO; +ATOR20TA37 PO; +CEFD300C37 PO; +CEPH-376 PO; +CYAN100072 PO; -CYCL-259 PO; +CYCL10TA2 PO; +DOXY100T PO; -ENAL20TA PO; +ENAL20TA9 PO; +FURO-93 PO; +GABA300C PO; +INSU100I13 SQ; +SERT50TA28 PO; +[UNRECOGNIZED DRUG - OTHER]
== END | disposition home or self-care (01) ==
LOC: CFH 15:45
PROVIDERS: ATTEND Student in an Organized Health Care Education/Training Program
DX: I08.0 Rheumatic disorders of both mitral and aortic valves (principal); I25.10 Atherosclerotic heart disease of native coronary artery without angina pectoris
CPT/HCPCS: 93306